=== PATIENT | female | born 2000 | race Asian ===

== ENCOUNTER 2020-05-20 17:30 | Emergency (ER) | payer MEDICAID ==
[~2020-05-20] VITALS: Ht 162.6 cm; Wt 52.6 kg
[2020-05-20 17:33] VITALS: BP_SYST 99
[2020-05-20 19:18] VITALS: BP_SYST 99
== END 2020-05-20 19:18 | disposition home or self-care (01) ==
LOC: SED 17:30
DX: R10.84 Generalized abdominal pain (principal)
CPT/HCPCS: 74021; 81025; 99283